=== PATIENT | male | born 1995 | race African-American/Black ===

== ENCOUNTER 2022-11-16 14:57 | Emergency (ER) | payer SELFPAY ==
--- NOTE | 2022-11-16 16:40 | RAD REPORT ---
EXAM DESCRIPTION: RAD - Chest Pa And Lat (2 Views) - 11/16/2022 4:00 pm CLINICAL HISTORY: COUGH COMPARISON: <Comparisons> TECHNIQUE: PA and lateral views of the chest were obtained. FINDINGS: The lungs are clear. Heart size is normal and central vasculature is within normal limits. No pleural effusion or pneumothorax seen. No acute bony finding noted. IMPRESSION: No acute cardiopulmonary process.
--- NOTE | 2022-11-16 17:04 | EDPHYS ---
Physician Documentation [facility] Name: Randy Arriaga Age: 27 yrs Sex: Male : 1995 Arrival Date: 11/16/2022 Time: 14:57 Bed 12 Private MD: ED Physician Shahram Gonzalez HPI: 11/16 15:37 This 27 yrs old Male presents to ER via Ambulatory with complaints of Painful Cough. rn 15:37 The patient or guardian reports cough. rn 15:37 Onset: The symptoms/episode began/occurred 3 day(s) ago. Severity of symptoms: At their rn worst the symptoms were moderate, in the emergency department the symptoms have improved. Modifying factors: The symptoms are alleviated by nothing, the symptoms are aggravated by nothing. The patient has not experienced similar symptoms in the past. The patient has not recently seen a physician. Pt reports cough and congestion, sore throat for 3 days. Low grade fever. No sob. No chronic lung problems.. Historical: - Allergies: 15:17 No Known Allergies; eh3 - PMHx: 15:17 None; eh3 - PSHx: 15:17 None; eh3 - Immunization history:: Client reports having NOT received the Covid vaccine. - Social history:: Smoking status: Reported history of juuling and/or vaping. - Family history:: not pertinent. - Hospitalizations: : No recent hospitalization is reported. ROS: 15:37 Constitutional: Negative for fever, chills, and weight loss, ENT: + congestion and sore rn throat Cardiovascular: Negative for chest pain, palpitations, and edema, Respiratory: + cough Abdomen/GI: Negative for abdominal pain, nausea, vomiting, diarrhea, and constipation, Neuro: Negative for headache, weakness, numbness, tingling, and seizure. Exam: 15:37 Constitutional: This is a well developed, well nourished patient who is awake, alert, rn and in no acute distress. ENT: Mild pharyngeal erythema, no exudate, uvula midline without swelling Cardiovascular: Regular rate and rhythm. No pulse deficits. Respiratory: Lungs have equal breath sounds bilaterally, clear to auscultation. No rales, rhonchi or wheezes noted. No increased work of breathing, no retractions or nasal flaring. Vital Signs: 15:17 BP 127 / 104; Pulse 79; Resp 16; Temp 99.2; Pulse Ox 98% on R/A; Weight 83.91 kg; eh3 Height 5 ft. 10 in. ; Pain 0/10; 17:15 BP 125 / 85; Pulse 68; Resp 16; Pulse Ox 98% on R/A; ll1 15:17 Body Mass Index 26.54 (83.91 kg, 177.8 cm) [facility] 15:17 Pain Scale: Adult eh3 MDM: 15:00 Patient medically screened. rn 17:03 Differential Diagnosis: Bronchitis Influenza Upper Respiratory Infection Pharyngitis rn Viral Syndrome Pneumonia. Data reviewed: vital signs, nurses notes, lab test result(s), radiologic studies, plain films, and as a result, I will discharge patient. Counseling: I had a detailed discussion with the patient and/or guardian regarding: the historical points, exam findings, and any diagnostic results supporting the discharge/admit diagnosis, lab results, radiology results, the need for outpatient follow up, to return to the emergency department if symptoms worsen or persist or if there are any questions or concerns that arise at home. Special discussion: I discussed with the patient/guardian in detail that at this point there is no indication for admission to the hospital. It is understood, however, that if the symptoms persist or worsen the patient needs to return immediately for re-evaluation. 11/16 15:02 Order name: Flu; Complete Time: 16:38 os 11/16 15:02 Order name: Strep os 11/16 15:29 Order name: SARS-COV-2 RT PCR; Complete Time: 16:38 EDRI 11/16 16:23 Order name: Throat Culture [facility] 11/16 15:02 Order name: XRAY Chest Pa And Lat (2 Views); Complete Time: 17:01 os Administered Medications: No medications were administered Disposition Summary: 11/16/22 17:04 Discharge Ordered Location: Home rn Problem: new rn Symptoms: have improved rn Condition: Stable rn Diagnosis - Cough rn Followup: rn - With: Private Physician - When: As needed - Reason: Recheck today's complaints, Re-evaluation by your physician Discharge Instructions: - Discharge Summary Sheet rn - Cough, Adult rn Forms: - Medication Reconciliation Form rn - Thank You Letter rn - Antibiotic edge burnisher uppers - Prescription Opioid Use rn - [email or web address] rn - Work release form ll1 Prescriptions: - Zithromax Z-James 250 mg Oral Tablet - take 1 tablet by ORAL route as directed for 5 days Day 1 - take two (2) tablets rn one time. Day 2, 3, 4 , 5 take one (1) tablet once daily.; 6 tablet; Refills: 0, Product Selection Permitted Signatures: Dispatcher [employer] EDShahram Leyva MD MD rn [place] RN RN [facility] Corrections: (The following items were deleted from the chart) 15:29 15:03 SARS-COV-2 Antigen Rapid+I.LAB.BRZ ordered. EDMS EDMS
--- NOTE | 2022-11-16 17:04 | ER ---
Nurse's Notes [facility] Name: Randy Arriaga Age: 27 yrs Sex: Male : 1995 Arrival Date: 11/16/2022 Time: 14:57 Bed 12 Private MD: Diagnosis: Cough Presentation: 11/16 15:17 Chief complaint: Patient states: Painful cough, some congestion for 3 days. Coronavirus eh3 screen: Vaccine status: Patient reports being unvaccinated. Client denies travel out of the [place] in the last 14 days. congestion, cough unrelated to allergies, fatigue, sore throat, Client presents with at least one sign or symptom that may indicate coronavirus-19. Standard/surgical mask placed on the client. Ebola Screen: Patient denies travel to an Ebola-affected area in the 21 days before illness onset. Initial Sepsis Screen: Does the patient meet any 2 criteria? No. Patient's initial sepsis screen is negative. Does the patient have a suspected source of infection? Yes: Productive cough/pneumonia. Risk Assessment: Do you want to hurt yourself or someone else? Patient reports no desire to harm self or others. Onset of symptoms was November 14, 2022. 15:17 Method Of Arrival: Ambulatory 3 15:17 Acuity: CAMMY 4 eh3 Triage Assessment: 15:18 General: Appears in no apparent distress. Behavior is calm, cooperative, appropriate eh3 for age. Pain: Denies pain. Respiratory: Reports shortness of breath cough that is pain with cough. Historical: - Allergies: 15:17 No Known Allergies; eh3 - PMHx: 15:17 None; eh3 - PSHx: 15:17 None; eh3 - Immunization history:: Client reports having NOT received the Covid vaccine. - Social history:: Smoking status: Reported history of juuling and/or vaping. - Family history:: not pertinent. - Hospitalizations: : No recent hospitalization is reported. Screenin:18 [facility] ED Fall Risk Assessment (Adult) Score/Fall Risk Level 0 - 2 = Low Risk eh3 Oriented to surroundings, Maintained a safe environment, Educated pt \T\ family on fall prevention, incl call for assistance when getting out of bed, Hourly rounding (assess needs \T\ fall precautionary measures) done. Abuse screen: Denies threats or abuse. Nutritional screening: No deficits noted. Tuberculosis screening: No symptoms or risk factors identified. Assessment: 15:26 Reassessment: No changes from previously documented assessment. Patient and/or family ll1 updated on plan of care and expected duration. Pain level reassessed. Patient is alert, oriented x 3, equal unlabored respirations, skin warm/dry/pink. 17:15 Reassessment: No changes from previously documented assessment. Patient and/or family ll1 updated on plan of care and expected duration. Pain level reassessed. Patient is alert, oriented x 3, equal unlabored respirations, skin warm/dry/pink. Vital Signs: 15:17 BP 127 / 104; Pulse 79; Resp 16; Temp 99.2; Pulse Ox 98% on R/A; Weight 83.91 kg; eh3 Height 5 ft. 10 in. ; Pain 0/10; 17:15 BP 125 / 85; Pulse 68; Resp 16; Pulse Ox 98% on R/A; ll1 15:17 Body Mass Index 26.54 (83.91 kg, 177.8 cm) 3 15:17 Pain Scale: Adult [facility] ED Course: 15:00 Patient arrived in ED. im 15:00 Shahram Gonzalez MD is Attending Physician. rn 15:10 Jannette Thomas RN is Primary Nurse. ll1 15:10 Arm band placed on Patient placed in an exam room, on a stretcher. ll1 15:18 Triage completed. eh3 15:18 Patient has correct armband on for positive identification. Bed in low position. Call [facility] light in reach. Side rails up X 1. Cardiac monitoring not applicable on this patient. 15:26 Flu Sent. ll1 15:26 Strep Sent. ll1 16:01 XRAY Chest Pa And Lat (2 Views) In Process Unspecified. EDMS 17:15 No provider procedures requiring assistance completed. Patient did not have IV access ll1 during this emergency room visit. Administered Medications: No medications were administered Medication: 15:18 VIS not applicable for this client. 3 Outcome: 17:04 Discharge ordered by . rn 17:15 Discharged to home ambulatory. ll1 17:15 Condition: stable 17:15 Discharge instructions given to patient, Instructed on discharge instructions, follow up and referral plans. Demonstrated understanding of instructions, follow-up care, medications, Prescriptions given X 1. 17:16 Patient left the ED. ll1 Signatures: Dispatcher [employer] EDMS Shahram Gonzalez MD MD rn Lewis, Lynsay, RN RN 1 Kimberly Arriaga RN RN 3 Rosemary Short Corrections: (The following items were deleted from the chart) 15:29 15:26 SARS-COV-2 Antigen Rapid+I.LAB.BRZ drawn and sent. [address]
[2022-11-16 17:41] VITALS: TEMP 99.2; O2SAT 98
[2022-11-16 17:43] VITALS: BP 125/85
[2022-11-16] MEDS ORDERED: LEVETIRACETAM 500 MG/5 ML VIAL IV ONE (18:17)
== END 2022-11-16 17:16 | disposition home or self-care (01) ==
LOC: ER 14:57
DX: R05.9 Cough, unspecified (principal)
CPT/HCPCS: 71046; 87070; 87081; 87635; 87804; 99283; J1953